=== PATIENT | female | born 1950 | race Caucasian/White ===

== ENCOUNTER 2016-12-22 08:41 | Emergency (ER) | payer MEDICARE, OTHER | END 2016-12-22 09:35 | disposition home or self-care (01) | LOC: FER 08:41 | DX: L27.0 Generalized skin eruption due to drugs and medicaments taken internally (principal); T36.8X5A Adverse effect of other systemic antibiotics, initial encounter; F17.210 Nicotine dependence, cigarettes, uncomplicated; Z88.5 Allergy status to narcotic agent | CPT/HCPCS: J2930 ==